=== PATIENT | male | born 1955 | race African-American/Black ===

== ENCOUNTER 2024-01-16 02:43 | Emergency (ER) | payer OTHER ==
[2024-01-16] MEDS ORDERED: Ketorolac Tromethamine 30 MG (1 mL) VIAL ONE (03:14)
== END 2024-01-16 03:35 | disposition home or self-care (01) ==
LOC: NAV ERS 02:43
DX: M10.9 Gout, unspecified (principal); I10 Essential (primary) hypertension; F17.210 Nicotine dependence, cigarettes, uncomplicated; Z79.899 Other long term (current) drug therapy
CPT/HCPCS: 96372; 99283; J1885